=== PATIENT | male | born 1960 | race Two or more races ===

== ENCOUNTER 2023-05-03 17:12 | Emergency (ER) | payer MEDICARE, OTHER ==
[~2023-05-03] VITALS: Ht 165.1 cm; Wt 86.3 kg
[2023-05-03] MEDS ORDERED: ONDANSETRON ODT 4 MG TAB PO ONE (19:30)
[2023-05-03] MEDS ORDERED: ACETAMINOPHEN 500 MG TAB PO ONE (19:30)
[2023-05-03 21:09] VITALS: BP 127/70; PULSE 58; RESP 16; TEMP 98; O2SAT 95
[2023-05-03] MEDS ORDERED: GABA-1250 PO (21:42)
[2023-05-03] MEDS ORDERED: ACET500T58 PO (21:42)
== END 2023-05-03 22:30 | disposition home or self-care (01) ==
LOC: EDBD 17:12 → ER 17:12
DX: R51.9 Headache, unspecified (principal); M47.22 Other spondylosis with radiculopathy, cervical region; I10 Essential (primary) hypertension
CPT/HCPCS: 70450; 72040; 99284; Q0162

== ENCOUNTER 2023-05-31 10:45 | Emergency (ER) | payer MEDICARE, OTHER ==
[~2023-05-31] VITALS: Ht 167.6 cm; Wt 72.7 kg
[~2023-05-31 10:45] MED LIST: ACET500T58 PO; GABA-1250 PO
[2023-05-31] MEDS ORDERED: ASPirin 81 mg TAB PO ONE (11:45)
[2023-05-31] MEDS ORDERED: ACETAMINOPHEN 325 MG TAB PO ONE (11:45)
[2023-05-31] MEDS ORDERED: ONDANSETRON HCL 4 MG/2 ML VIAL IV ONE (11:45)
[2023-05-31] MEDS ORDERED: LORazepam 2MG/ML-1ML VIAL IV ONE ×2 (11:45→14:45)
[2023-05-31 12:29] LABS: Basophils # (auto) 0 10 ^3/uL (0-0.2); Basophils % (auto) 0.6 % (0.0-2.0); Eosinophils # (auto) 0.2 10 ^3/uL (0-0.8); Eosinophils % (auto) 2.8 % (0.0-7.0); Hematocrit 41.5 % (41.0-53.0); Hemoglobin 13.8 g/dL (13.5-17.5); Lymphocytes # (auto) 1.8 10 ^3/uL (0.4-5.4); Lymphocytes % (auto) 23.3 % (10.0-50.0); Mean Corpuscular Hemoglobin 30.2 pg (28.0-32.0); Mean Corpuscular Hgb Conc. 33.3 g/dL (32.0-36.0); Mean Corpuscular Volume 90.7 fL (80.0-100.0); Monocytes # (auto) 0.6 10 ^3/uL (0-1.3); Monocytes % (auto) 7.2 % (0.0-12.0); Neutrophils # (auto) 5.2 10 ^3/uL (1.6-8.6); Neutrophils % (auto) 66.1 % (37.0-80.0); Nucleated Red Blood Cells % 0.1 %; Red Blood Cells 4.57 10^6/uL (4.5-5.90); Red Cell Distribution Width 13.9 % (11.8-14.3); White Blood Cell 7.9 10^3/uL (4.4-10.8)
[2023-05-31 12:44] LABS: INR 1.05 (0.9-1.15); Partial Thromboplastin Time 28.6 SEC (24.5-34.5)
[2023-05-31 12:52] LABS: Alanine Aminotransferase 32 U/L (7-40); Albumin 4.7 g/dL (3.2-4.8); Alkaline Phosphatase 110 U/L (46-116); Anion Gap 8.9 (5-15); Aspartate Aminotransferase 22 U/L (13-40); BUN/Creatinine Ratio 22.3 (10.0-20.0); Blood Urea Nitrogen 21 mg/dL (9-23); CRP High Sensitivity 0.07 mg/dL (<1.0); Calcium 10.2 mg/dL (8.5-10.1); Carbon Dioxide 26.1 mmol/L (20-30); Chloride 104 mmol/L (98-107); Glucose 93 mg/dL (74-106); Magnesium 1.9 mg/dL (1.6-2.6); Potassium 3.6 mmol/L (3.5-5.1); Sodium 139 mmol/L (136-145)
[2023-05-31 12:53] LABS: Bilirubin, Total 0.5 mg/dL (0.2-1.0); Total Protein 7.5 g/dL (5.7-8.2)
[2023-05-31 13:20] LABS: Erythrocyte Sedimentation Rate 13 mm/hr (0-20)
[2023-05-31 14:14] LABS: Blood Alcohol < 3.0 mg/dL (<10)
[2023-05-31] MEDS ORDERED: SODIUM CHLORIDE 0.9% 1,000 ML IV ONE (14:45)
[2023-05-31] MEDS ORDERED: IOHEXOL 350 MG/ML 100ML IJ ONE (15:33)
[2023-05-31 19:44] VITALS: BP 149/79; PULSE 55; RESP 17; TEMP 97.8; O2SAT 97
== END 2023-05-31 19:44 | disposition home or self-care (01) ==
LOC: EDBD 10:45 → ER 10:45
DX: R06.00 Dyspnea, unspecified (principal); F41.9 Anxiety disorder, unspecified; R07.89 Other chest pain; I10 Essential (primary) hypertension; E78.5 Hyperlipidemia, unspecified; G89.29 Other chronic pain; M54.9 Dorsalgia, unspecified; M54.2 Cervicalgia
CPT/HCPCS: 36415; 71045; 71275; 80053; 80320; 83605; 83735; 83880; 84443; 84484; 85025; 85610; 85652; 85730; 86141; 96361; 96374; 99285; J2405; J7030; Q9967

== ENCOUNTER 2023-06-02 11:22 | Emergency (ER) | payer MEDICARE, OTHER ==
[~2023-06-02] VITALS: Ht 167.6 cm; Wt 75.0 kg
[2023-06-02] MEDS ORDERED: HYDROcodone-ACET 5/325MG TAB PO ONE (11:45)
[2023-06-02] MEDS ORDERED: METOCLOPRAMIDE HCL 10 MG TAB PO ONE (11:45)
[2023-06-02 12:26] LABS: Alanine Aminotransferase 29 U/L (7-40); Albumin 4.4 g/dL (3.2-4.8); Alkaline Phosphatase 103 U/L (46-116); Anion Gap 7.2 (5-15); Aspartate Aminotransferase 19 U/L (13-40); Bilirubin, Total 0.4 mg/dL (0.2-1.0); Blood Urea Nitrogen 21 mg/dL (9-23); Calcium 9.4 mg/dL (8.5-10.1); Carbon Dioxide 25.8 mmol/L (20-30); Chloride 106 mmol/L (98-107); Glucose 113 mg/dL (74-106); Potassium 3.9 mmol/L (3.5-5.1); Sodium 139 mmol/L (136-145)
[2023-06-02 12:28] LABS: Basophils # (auto) 0 10 ^3/uL (0-0.2); Basophils % (auto) 0.5 % (0.0-2.0); Eosinophils # (auto) 0.5 10 ^3/uL (0-0.8); Eosinophils % (auto) 5.3 % (0.0-7.0); Hematocrit 38.8 % (41.0-53.0); Hemoglobin 13.4 g/dL (13.5-17.5); Lymphocytes # (auto) 2.1 10 ^3/uL (0.4-5.4); Lymphocytes % (auto) 24.9 % (10.0-50.0); Mean Corpuscular Hemoglobin 30.9 pg (28.0-32.0); Mean Corpuscular Hgb Conc. 34.4 g/dL (32.0-36.0); Mean Corpuscular Volume 89.9 fL (80.0-100.0); Monocytes # (auto) 0.6 10 ^3/uL (0-1.3); Monocytes % (auto) 6.8 % (0.0-12.0); Neutrophils # (auto) 5.4 10 ^3/uL (1.6-8.6); Neutrophils % (auto) 62.5 % (37.0-80.0); Red Blood Cells 4.32 10^6/uL (4.5-5.90); Red Cell Distribution Width 14.1 % (11.8-14.3); White Blood Cell 8.6 10^3/uL (4.4-10.8)
[2023-06-02 13:00] LABS: INR 1.03 (0.9-1.15); Partial Thromboplastin Time 28.6 SEC (24.5-34.5); Prothrombin Time 10.8 sec (9.3-11.8)
[2023-06-02 13:13] LABS: Urine Bacteria NONE SEEN /hpf (None Seen); Urine Blood Negative /uL (Negative); Urine Clarity Clear (Clear); Urine Color Colorless (Yellow); Urine Protein, UAD Negative (Negative); Urine Specific Gravity 1.006 (1.001-1.035); Urine Urobilinogen Normal (Negative); Urine WBC <1 /hpf (0 - 3)
[2023-06-02 18:50] VITALS: PULSE 55; RESP 16; O2SAT 98
[2023-06-02 19:30] VITALS: PULSE 64; RESP 15; O2SAT 98
[2023-06-02 23:23] LABS: Protein, CSF 67.3 mg/dL (15-45)
[2023-06-02 23:27] LABS: CSF White Blood Cells 2 CUMM (0-5); Description,CSF Clear
[2023-06-03] MEDS ORDERED: NAPR375T5 PO (00:36)
[2023-06-03] MEDS ORDERED: ACET-1304 PO (00:36)
[2023-06-03] MEDS ORDERED: METO-281 PO (00:36)
[2023-06-03 01:00] VITALS: BP 141/88; PULSE 65; RESP 18; O2SAT 96
[2023-06-05 08:06] LABS: HSV-1 DNA CSF Negative (Negative); HSV-2 DNA Negative (Negative)
[2023-06-05 14:06] LABS: CAP Mandated Reflex to Culture Not Indicated (.); Cryptococcus Antigen CSF Negative (Negative)
== END 2023-06-03 01:27 | disposition home or self-care (01) ==
LOC: ER 11:22 → EDBD 11:22 → ER 06-03 00:54
DX: R51.9 Headache, unspecified (principal); I10 Essential (primary) hypertension; Z88.8 Allergy status to other drugs, medicaments and biological substances; Z79.899 Other long term (current) drug therapy; Z79.01 Long term (current) use of anticoagulants
CPT/HCPCS: 36415; 70450; 71045; 80053; 81001; 82945; 83880; 84157; 84484; 85025; 85610; 85730; 87070; 87205; 87529; 87899; 89051; 93005; 99285; J8597

== ENCOUNTER 2023-06-23 14:59 | Inpatient (IN) | payer MEDICARE, OTHER ==
[~2023-06-23] VITALS: Ht 172.7 cm; Wt 73.9 kg
[~2023-06-23 14:59] MED LIST changes: +ACET-1304 PO; +METO-281 PO; +NAPR375T5 PO
[2023-06-23 15:33] LABS: Basophils # (auto) 0 10 ^3/uL (0-0.2); Basophils % (auto) 0.7 % (0.0-2.0); Eosinophils # (auto) 0.2 10 ^3/uL (0-0.8); Eosinophils % (auto) 2.7 % (0.0-7.0); Hematocrit 40.7 % (41.0-53.0); Hemoglobin 13.9 g/dL (13.5-17.5); Lymphocytes # (auto) 1.3 10 ^3/uL (0.4-5.4); Lymphocytes % (auto) 17.9 % (10.0-50.0); Mean Corpuscular Hemoglobin 30.7 pg (28.0-32.0); Mean Corpuscular Hgb Conc. 34.3 g/dL (32.0-36.0); Mean Corpuscular Volume 89.5 fL (80.0-100.0); Monocytes # (auto) 0.5 10 ^3/uL (0-1.3); Monocytes % (auto) 6.5 % (0.0-12.0); Neutrophils # (auto) 5.4 10 ^3/uL (1.6-8.6); Neutrophils % (auto) 72.2 % (37.0-80.0); Red Blood Cells 4.54 10^6/uL (4.5-5.90); Red Cell Distribution Width 14.1 % (11.8-14.3); White Blood Cell 7.5 10^3/uL (4.4-10.8)
[2023-06-23 15:53] LABS: Alanine Aminotransferase 28 U/L (7-40); Albumin 4.5 g/dL (3.2-4.8); Alkaline Phosphatase 116 U/L (46-116); Anion Gap 10 (5-15); Aspartate Aminotransferase 16 U/L (13-40); Blood Urea Nitrogen 26 mg/dL (9-23); Calcium 10.1 mg/dL (8.7-10.4); Carbon Dioxide 24 mmol/L (20-30); Chloride 109 mmol/L (98-107); Glucose 142 mg/dL (74-106); Potassium 3.7 mmol/L (3.5-5.1); Sodium 143 mmol/L (136-145)
[2023-06-23 15:54] LABS: Bilirubin, Total 0.7 mg/dL (0.2-1.0); Total Protein 7.3 g/dL (5.7-8.2)
[2023-06-23 16:25] LABS: Urine Bacteria NONE SEEN /hpf (None Seen); Urine Blood Negative /uL (Negative); Urine Clarity Clear (Clear); Urine Color Colorless (Yellow); Urine Mucus FEW (None Seen); Urine Protein, UAD Negative (Negative); Urine Urobilinogen Normal (Negative); Urine WBC 1 /hpf (0 - 3); Urine pH 5.5 (5.0-8.0)
[2023-06-23 18:22] VITALS: PULSE 107; RESP 16; O2SAT 95
[2023-06-23 19:40] VITALS: PULSE 95; RESP 15; O2SAT 96
[2023-06-23] MEDS ORDERED: PSEUDOEPHEDRINE HCL 30 MG TAB PO ONE (20:45)
[2023-06-23] MEDS ORDERED: ALBUTEROL SULF 2.5 MG/0.5ML(0.5%) NEB SOLN NEB PRN (20:45)
[2023-06-23] MEDS ORDERED: OXYMETAZOLINE HCL 0.05 % NASAL SPRAY 15ML EACHNOSTRI ONE (21:00)
[2023-06-23 21:16] VITALS: BP 154/97; PULSE 95; RESP 16; TEMP 98.6; O2SAT 96
[2023-06-23] MEDS: METOPROLOL TARTRATE 25 MG TAB PO SCH (22:20)
[2023-06-23] MEDS: ATORVASTATIN 20 MG TAB PO SCH (22:20)
[2023-06-23] MEDS: TEMAZEPAM 15 MG CAP PO PRN (22:24)
[2023-06-24 06:40] LABS: Alanine Aminotransferase 27 U/L (7-40); Albumin 4.4 g/dL (3.2-4.8); Alkaline Phosphatase 107 U/L (46-116); Anion Gap 9 (5-15); Aspartate Aminotransferase 20 U/L (13-40); BUN/Creatinine Ratio 19.7 (10.0-20.0); Blood Urea Nitrogen 26 mg/dL (9-23); Calcium 9.4 mg/dL (8.7-10.4); Carbon Dioxide 25 mmol/L (20-30); Chloride 107 mmol/L (98-107); Glucose 106 mg/dL (74-106); Potassium 3.6 mmol/L (3.5-5.1); Sodium 141 mmol/L (136-145); Total Protein 7.3 g/dL (5.7-8.2)
[2023-06-24 06:43] LABS: Basophils # (auto) 0 10 ^3/uL (0-0.2); Basophils % (auto) 0.4 % (0.0-2.0); Eosinophils # (auto) 0.2 10 ^3/uL (0-0.8); Eosinophils % (auto) 3.2 % (0.0-7.0); Hematocrit 40.6 % (41.0-53.0); Lymphocytes # (auto) 1.2 10 ^3/uL (0.4-5.4); Lymphocytes % (auto) 17.4 % (10.0-50.0); Mean Corpuscular Hemoglobin 30.9 pg (28.0-32.0); Mean Corpuscular Hgb Conc. 34.4 g/dL (32.0-36.0); Mean Corpuscular Volume 89.8 fL (80.0-100.0); Monocytes # (auto) 0.6 10 ^3/uL (0-1.3); Monocytes % (auto) 8.3 % (0.0-12.0); Neutrophils # (auto) 5.1 10 ^3/uL (1.6-8.6); Neutrophils % (auto) 70.7 % (37.0-80.0); Nucleated Red Blood Cells % 0.1 %; Red Blood Cells 4.52 10^6/uL (4.5-5.90); Red Cell Distribution Width 14.3 % (11.8-14.3); White Blood Cell 7.2 10^3/uL (4.4-10.8)
[2023-06-24 07:48] VITALS: PULSE 59; RESP 17; O2SAT 93
[2023-06-24 10:00] VITALS: O2SAT 98
[2023-06-24] MEDS ORDERED: ENOXAPARIN SOD 40 MG/0.4 ML SYRINGE SC SCH (10:00)
[2023-06-24] MEDS ORDERED: FUROSEMIDE 20 MG TAB PO SCH (10:00)
[2023-06-24] MEDS: METOPROLOL TARTRATE 25 MG TAB PO SCH ×2 (10:05→20:33)
[2023-06-24] MEDS: CLOPIDOGREL BISULFATE 75 MG TAB PO SCH (10:05)
[2023-06-24] MEDS: LOSARTAN POTASSIUM 50 MG TAB PO SCH (10:05)
[2023-06-24] MEDS ORDERED: FLUTICASONE PROP NASAL SPR 0.05 % (50MCG) 16GM EACHNOSTRI ONE (12:45)
[2023-06-24] MEDS ORDERED: CLOP75TA70 PO (15:12)
[2023-06-24] MEDS ORDERED: METO10TA3 PO (15:12)
[2023-06-24] MEDS ORDERED: ASPI-543 PO (15:12)
[2023-06-24] MEDS ORDERED: LOSA100T58 PO (15:12)
[2023-06-24] MEDS ORDERED: ACET500T58 PO (15:12)
[2023-06-24] MEDS ORDERED: METO25TA93 PO (15:12)
[2023-06-24] MEDS ORDERED: FURO20TA3 PO (15:12)
[2023-06-24] MEDS ORDERED: TRAM50TA2 PO (15:12)
[2023-06-24] MEDS ORDERED: ATOR-47 PO (15:12)
[2023-06-24] MEDS ORDERED: TERA2CAP45 PO (15:12)
[2023-06-24] MEDS ORDERED: GABA-1250 PO (15:12)
[2023-06-24 16:31] LABS: Triglycerides 135 mg/dL (< 150)
[2023-06-24 16:32] LABS: LDL Cholesterol 53 mg/dL (< 100)
[2023-06-24 16:33] LABS: Cholesterol 110 mg/dL (< 200); HDL Cholesterol 35 mg/dL (40-59)
[2023-06-24 17:00] VITALS: BP 153/88; PULSE 66; RESP 18; TEMP 98.1; O2SAT 97
[2023-06-24 20:00] VITALS: RESP 18
[2023-06-24] MEDS: TEMAZEPAM 15 MG CAP PO PRN (20:33)
[2023-06-24] MEDS: ATORVASTATIN 20 MG TAB PO SCH (20:33)
[2023-06-24] MEDS: FLUTICASONE PROP NASAL SPR 0.05 % (50MCG) 16GM EACHNOSTRI SCH (20:34)
[2023-06-24] MEDS: ACETAMINOPHEN 325 MG TAB PO PRN (20:34)
[2023-06-24 22:00] VITALS: BP 178/88; PULSE 74; RESP 16; TEMP 98.4; O2SAT 96
[2023-06-24] MEDS: HYDROcodone-ACET 5/325MG TAB PO PRN (22:44)
[2023-06-25] VITALS (8 sets, daily range): BP systolic 141–175; BP diastolic 67–99; PULSE 52–69; RESP 18–20; TEMP 97.5–98.4; O2SAT 94–100
[2023-06-25] MEDS: hydrALAZINE HCL 20 MG/ML VL IV PRN ×2 (05:24→17:47)
[2023-06-25 05:59] LABS: Chloride 108 mmol/L (98-107); Potassium 3.6 mmol/L (3.5-5.1); Sodium 142 mmol/L (136-145)
[2023-06-25 06:00] LABS: Anion Gap 8 (5-15); Carbon Dioxide 26 mmol/L (20-30)
[2023-06-25 06:01] LABS: Calcium 9.1 mg/dL (8.5-10.1)
[2023-06-25 06:05] LABS: Glucose 93 mg/dL (74-106)
[2023-06-25 06:06] LABS: Blood Urea Nitrogen 23 mg/dL (9-23)
[2023-06-25 06:08] LABS: Basophils # (auto) 0 10 ^3/uL (0-0.2); Basophils % (auto) 0.7 % (0.0-2.0); Eosinophils # (auto) 0.3 10 ^3/uL (0-0.8); Eosinophils % (auto) 4.3 % (0.0-7.0); Hematocrit 40.2 % (41.0-53.0); Hemoglobin 13.8 g/dL (13.5-17.5); Lymphocytes # (auto) 2.2 10 ^3/uL (0.4-5.4); Lymphocytes % (auto) 33.8 % (10.0-50.0); Mean Corpuscular Hemoglobin 31.2 pg (28.0-32.0); Mean Corpuscular Hgb Conc. 34.4 g/dL (32.0-36.0); Mean Corpuscular Volume 90.6 fL (80.0-100.0); Monocytes # (auto) 0.8 10 ^3/uL (0-1.3); Monocytes % (auto) 12.4 % (0.0-12.0); Neutrophils # (auto) 3.2 10 ^3/uL (1.6-8.6); Neutrophils % (auto) 48.8 % (37.0-80.0); Nucleated Red Blood Cells % 0.1 %; Red Blood Cells 4.43 10^6/uL (4.5-5.90); Red Cell Distribution Width 14.5 % (11.8-14.3); White Blood Cell 6.5 10^3/uL (4.4-10.8)
[2023-06-25] MEDS: FLUTICASONE PROP NASAL SPR 0.05 % (50MCG) 16GM EACHNOSTRI SCH ×2 (10:13→23:04)
[2023-06-25] MEDS: CLOPIDOGREL BISULFATE 75 MG TAB PO SCH (10:14)
[2023-06-25] MEDS: METOPROLOL TARTRATE 25 MG TAB PO SCH ×2 (10:16→23:05)
[2023-06-25] MEDS: LOSARTAN POTASSIUM 50 MG TAB PO SCH (10:17)
[2023-06-25] MEDS ORDERED: LORazepam 2MG/ML-1ML VIAL IV ONE (12:15)
[2023-06-25] MEDS: ONDANSETRON HCL 4 MG/2 ML VIAL IV PRN (15:07)
[2023-06-25] MEDS: HYDROcodone-ACET 5/325MG TAB PO PRN (15:28)
[2023-06-25] MEDS: DOCUSATE SOD 100 MG CAP PO PRN ×2 (17:29→23:05)
[2023-06-25] MEDS: TEMAZEPAM 15 MG CAP PO PRN (23:05)
[2023-06-25] MEDS: ATORVASTATIN 20 MG TAB PO SCH (23:05)
[2023-06-26] VITALS (8 sets, daily range): BP systolic 128–158; BP diastolic 68–78; PULSE 52–61; RESP 17–20; TEMP 98–98.4; O2SAT 95–98
[2023-06-26] MEDS: hydrALAZINE HCL 20 MG/ML VL IV PRN ×2 (05:59→15:35)
[2023-06-26] MEDS: METOPROLOL TARTRATE 25 MG TAB PO SCH ×2 (08:38→21:29)
[2023-06-26] MEDS: LOSARTAN POTASSIUM 50 MG TAB PO SCH (08:38)
[2023-06-26] MEDS: CLOPIDOGREL BISULFATE 75 MG TAB PO SCH (08:38)
[2023-06-26 09:22] LABS: Basophils # (auto) 0.1 10 ^3/uL (0-0.2); Basophils % (auto) 1.1 % (0.0-2.0); Eosinophils # (auto) 0.2 10 ^3/uL (0-0.8); Eosinophils % (auto) 3.2 % (0.0-7.0); Hematocrit 39.9 % (41.0-53.0); Hemoglobin 13.5 g/dL (13.5-17.5); Lymphocytes # (auto) 1.5 10 ^3/uL (0.4-5.4); Lymphocytes % (auto) 24.8 % (10.0-50.0); Mean Corpuscular Hgb Conc. 33.9 g/dL (32.0-36.0); Mean Corpuscular Volume 91.4 fL (80.0-100.0); Monocytes # (auto) 0.4 10 ^3/uL (0-1.3); Monocytes % (auto) 7.1 % (0.0-12.0); Neutrophils % (auto) 63.8 % (37.0-80.0); Nucleated Red Blood Cells % 0.1 %; Red Blood Cells 4.37 10^6/uL (4.5-5.90); Red Cell Distribution Width 14.4 % (11.8-14.3); White Blood Cell 6.2 10^3/uL (4.4-10.8)
[2023-06-26 09:28] LABS: Chloride 108 mmol/L (98-107); Sodium 140 mmol/L (136-145)
[2023-06-26 09:29] LABS: Anion Gap 9 (5-15); Carbon Dioxide 23 mmol/L (20-30)
[2023-06-26 09:30] LABS: Calcium 9.1 mg/dL (8.5-10.1)
[2023-06-26 09:34] LABS: Glucose 165 mg/dL (74-106)
[2023-06-26 09:35] LABS: BUN/Creatinine Ratio 17.5 (10.0-20.0); Blood Urea Nitrogen 20 mg/dL (9-23)
[2023-06-26] MEDS: HYDROcodone-ACET 5/325MG TAB PO PRN (10:16)
[2023-06-26] MEDS: DOCUSATE SOD 100 MG CAP PO PRN ×2 (10:16→21:30)
[2023-06-26] MEDS: FLUTICASONE PROP NASAL SPR 0.05 % (50MCG) 16GM EACHNOSTRI SCH ×2 (10:16→21:30)
[2023-06-26] MEDS ORDERED: LACTULOSE 20Gm/30ML SOLN PO ONE (11:00)
[2023-06-26] MEDS ORDERED: DOCUSATE SOD 100 MG CAP PO ONE (11:00)
[2023-06-26] MEDS: ACETAMINOPHEN 325 MG TAB PO PRN ×2 (11:35→17:46)
[2023-06-26] MEDS ORDERED: MORPHINE SULFATE INJ 2 MG/ml SYRG IV ONE (15:15)
[2023-06-26] MEDS ORDERED: SENNA 8.6 MG TAB PO ONE (15:15)
[2023-06-26] MEDS: guaiFENesin-DM 100/10mg/5ml SYR PO PRN (15:29)
[2023-06-26] MEDS: TEMAZEPAM 15 MG CAP PO PRN (21:30)
[2023-06-26] MEDS: ATORVASTATIN 20 MG TAB PO SCH (21:30)
[2023-06-27 06:15] VITALS: BP 152/86; PULSE 66; RESP 18; TEMP 98.4; O2SAT 98
[2023-06-27 08:00] VITALS: PULSE 68; RESP 17; O2SAT 99
[2023-06-27 09:00] VITALS: BP 168/83; PULSE 68; RESP 12; TEMP 97.4; O2SAT 99
[2023-06-27] MEDS: HYDROcodone-ACET 5/325MG TAB PO PRN (09:55)
[2023-06-27 10:00] VITALS: O2SAT 100; O2SAT 99
[2023-06-27] MEDS: METOPROLOL TARTRATE 25 MG TAB PO SCH (10:00)
[2023-06-27] MEDS: FLUTICASONE PROP NASAL SPR 0.05 % (50MCG) 16GM EACHNOSTRI SCH (10:04)
[2023-06-27] MEDS: ONDANSETRON HCL 4 MG/2 ML VIAL IV PRN (10:07)
[2023-06-27] MEDS: guaiFENesin-DM 100/10mg/5ml SYR PO PRN (10:07)
[2023-06-27] MEDS: LOSARTAN POTASSIUM 50 MG TAB PO SCH (10:10)
[2023-06-27] MEDS: CLOPIDOGREL BISULFATE 75 MG TAB PO SCH (10:11)
[2023-06-27] MEDS ORDERED: MECL1TAB42 PO (11:26)
[2023-06-27] MEDS ORDERED: DOCU-94 PO (11:26)
[2023-06-27] MEDS: ACETAMINOPHEN 325 MG TAB PO PRN (12:43)
[2023-06-27 13:00] VITALS: BP 138/69; PULSE 66; RESP 16; TEMP 98.5; O2SAT 97
[2023-06-27 13:05] VITALS: BP 147/83; PULSE 64
== END 2023-06-27 14:10 | disposition home or self-care (01) | DRG 682 ==
LOC: ER 14:59 → EDBD 14:59 → OVERFLOW 20:55 → WEST WING 06-24 08:52
PROVIDERS: ADMIT Internal Medicine; ATTEND Internal Medicine
DX: N17.0 Acute kidney failure with tubular necrosis (principal); G92.8 Other toxic encephalopathy; I11.0 Hypertensive heart disease with heart failure; R06.03 Acute respiratory distress; I50.9 Heart failure, unspecified; I25.2 Old myocardial infarction; I16.0 Hypertensive urgency; E11.9 Type 2 diabetes mellitus without complications; E78.5 Hyperlipidemia, unspecified; I25.10 Atherosclerotic heart disease of native coronary artery without angina pectoris; R09.81 Nasal congestion; K59.00 Constipation, unspecified
CPT/HCPCS: 36415; 70450; 70545; 70547; 70551; 71045; 71275; 76775; 80048; 80053; 80061; 81001; 82140; 83036; 83880; 84484; 85025; 85379; 93005; 93306; 93886; G0378; J2405